=== PATIENT | female | born 1980 | race Caucasian/White ===

== ENCOUNTER → 2016-07-18 | Outpatient (CLI) | payer OTHER, BC ==
[~2016-07-18] MED LIST: ATIVAN 0.50.5 MG/TAB PO; LEVOXYL0.05 MG PO; NUVARING1 ICR VG; PRINZIDE 12.5 M1 TA1 PO; PRISTIQ 50 MG T50 MG PO; PRISTIQ50 M1 PO
== END ==
LOC: BHSO 10:20
DX: F31.81 Bipolar II disorder (principal)

== ENCOUNTER → 2016-08-15 | Outpatient (CLI) | payer OTHER | LOC: BHSO 09:58 | DX: F31.81 Bipolar II disorder (principal) ==

== ENCOUNTER → 2016-09-19 | Outpatient (CLI) | payer OTHER | LOC: BHSO 09:25 | DX: F31.81 Bipolar II disorder (principal) ==

== ENCOUNTER → 2016-10-17 | Outpatient (CLI) | payer OTHER | LOC: BHSO 09:01 | DX: F31.81 Bipolar II disorder (principal) ==

== ENCOUNTER → 2016-11-21 | Outpatient (CLI) | payer OTHER | LOC: BHSO 10:21 | DX: F33.41 Major depressive disorder, recurrent, in partial remission (principal) ==

== ENCOUNTER 2017-01-30 12:45 | Outpatient (RCR) | payer OTHER | END 2017-02-20 16:42 | LOC: WSPT 12:45 | DX: M25.562 Pain in left knee (principal) ==

== ENCOUNTER → 2017-01-30 | Outpatient (CLI) | payer OTHER | LOC: BHSO 08:58 | DX: F41.1 Generalized anxiety disorder (principal) ==

== ENCOUNTER → 2017-04-10 | Outpatient (CLI) | payer OTHER | LOC: BHSO 09:21 | DX: F40.10 Social phobia, unspecified (principal) ==

== ENCOUNTER → 2017-07-24 | Outpatient (CLI) | payer OTHER | LOC: BHSO 09:19 | DX: F41.1 Generalized anxiety disorder (principal) | CPT/HCPCS: G0463 ==

== ENCOUNTER → 2017-10-16 | Outpatient (CLI) | payer OTHER | LOC: BHSO 09:36 | DX: F33.42 Major depressive disorder, recurrent, in full remission (principal) | CPT/HCPCS: G0463 ==

== ENCOUNTER → 2018-01-29 | Outpatient (CLI) | payer OTHER | LOC: BHSO 09:17 | DX: F41.1 Generalized anxiety disorder (principal) | CPT/HCPCS: G0463 ==

== ENCOUNTER → 2018-04-06 | Outpatient (CLI) | payer OTHER | LOC: BHSO 08:43 | DX: F41.0 Panic disorder [episodic paroxysmal anxiety] (principal) | CPT/HCPCS: G0463 ==

== ENCOUNTER → 2018-06-04 | Outpatient (CLI) | payer OTHER | LOC: BHSO 08:41 | DX: F41.1 Generalized anxiety disorder (principal) | CPT/HCPCS: G0463 ==

== ENCOUNTER → 2018-08-13 | Outpatient (CLI) | payer OTHER | LOC: BHSO 12:23 | DX: F33.42 Major depressive disorder, recurrent, in full remission (principal) | CPT/HCPCS: G0463 ==

== ENCOUNTER → 2018-10-15 | Outpatient (CLI) | payer OTHER | LOC: BHSO 09:38 | DX: F41.1 Generalized anxiety disorder (principal) | CPT/HCPCS: G0463 ==

== ENCOUNTER → 2019-03-11 | Outpatient (CLI) | payer OTHER | LOC: BHSO 09:18 | DX: F41.1 Generalized anxiety disorder (principal) | CPT/HCPCS: G0463 ==

== ENCOUNTER → 2020-02-24 | Outpatient (CLI) | payer OTHER | LOC: BHSO 13:44 | DX: F41.0 Panic disorder [episodic paroxysmal anxiety] (principal) | CPT/HCPCS: G0463 ==

== ENCOUNTER → 2020-03-23 | Outpatient (CLI) | payer OTHER | LOC: BHSO 13:41 | DX: F41.1 Generalized anxiety disorder (principal) | CPT/HCPCS: G0463 ==

== ENCOUNTER 2021-11-20 23:37 | Observation (INO) | payer OTHER ==
[~2021-11-20] VITALS: Wt 81.8 kg
[2021-11-21] VITALS (9 sets, daily range): BP systolic 114–126; BP diastolic 68–83; PULSE 78–87; TEMP 98–98.4
[2021-11-21 00:14] LABS: BASO % 0.3 % (0.0-2.0); GRAN # 11.3 K/mm3 (1.4-6.5); GRAN % 86.7 % (42.2-75.2); HEMATOCRIT 39.5 % (37.0-47.0); HEMOGLOBIN 13.9 g/dl (12.5-16.0); LYMPH # 1.4 K/mm3 (1.2-3.4); LYMPH % 10.4 % (20.0-51.0); MEAN CELL VOLUME 83 fl (80.0-100.0); MEAN CORPUSCULAR HEMOGLOBIN 29 pg (27-31); MEAN CORPUSCULAR HGB CONC 35 g/dl (33.0-37.0); MEAN PLATELET VOLUME 11.1 fl (7.4-10.4); MONO # 0.3 K/mm3 (0.1-0.6); MONO % 2.2 % (1.7-9.3); PLATELET COUNT 244 K/mm3 (130-400); RED BLOOD COUNT 4.77 M/mm3 (4.10-5.30); REDCELL DISTRIBUTION WIDTH-CV 12.7 % (11.5-14.5)
[2021-11-21 00:21] LABS: BILIRUBIN,TOTAL 1.8 mg/dL (0.2-1.2); C-REACTIVE PROTEIN 0.1 mg/dL (0.00-0.50); CALCIUM 9.7 mg/dL (8.4-10.2); CREATININE, serum 0.8 mg/dL (0.57-1.11); POTASSIUM 3.5 mmol/L (3.5-4.5); TOTAL PROTEIN 8.4 gm/dL (6.2-8.1)
[2021-11-21 01:13] LABS: COLLECTION METHOD CLEAN CATCH
[2021-11-21 01:20] LABS: PH 7 (5-8); SQUAMOUS EPITHELIAL None Seen /hpf (0-10); URINE APPEARANCE Clear (CLEAR/HAZY); URINE BACTERIA None Seen /hpf (NONE SEEN); URINE BILIRUBIN Negative (NEGATIVE); URINE BLOOD Negative (NEGATIVE); URINE COLOR Straw (YELLOW); URINE GLUCOSE 2+ (NEGATIVE); URINE KETONE 2+ (NEGATIVE); URINE LEUKOCYTE ESTERASE Negative (NEGATIVE); URINE NITRATE Negative (NEGATIVE); URINE PROTEIN(semi-quant) Negative (NEGATIVE); URINE RBC 0-2 /hpf (0-2); URINE UROBILINOGEN Negative (NEGATIVE)
[2021-11-21] MEDS ORDERED: VIIBRYD20 MG PO (05:27)
[2021-11-21] MEDS ORDERED: NORVASC 5MG5 MG/TAB PO (05:27)
[2021-11-21] MEDS ORDERED: SYNTHROID0.125 MG/T PO (05:27)
--- NOTE | 2021-11-21 09:57 | NUR ---
Initial visit; Patient and her daughter thanked [employer] for offering God's blessings and to keep Danelle in her prayers. Danelle states she is feeling better and was receptive to [employer] keeping her in her prayers.
--- NOTE | 2021-11-21 10:45 | NUR ---
STELLA met with the patient and her girlfriend, Faye Mejia (ph#[phone]), to discuss discharge plan. The patient lives in [place] with her two children. They are 9 and 14-years old. She states that her children are staying with her parents while she is here. She reports independence with ADLs and does not have any DME. The patient does not have a DPOA-HC and she was not interested in completing one while here. The patient states that she is not and that her children are under the age of 18. Her parents are her next-of-kin: Nisha (ph#[phone]) and Eric. The patient plans on returning home with her children upon discharge. No additional needs at this time. *Discharge plan: home with children*
[2021-11-21] MEDS ORDERED: IBU800 M1 PO (12:36)
[2021-11-21] MEDS ORDERED: PERCOCET 325 MG1 TA2 PO (12:36)
--- NOTE | 2021-11-21 13:40 | NUR ---
PATIENT DISCHARGED TO HOME WITH SIGNIFICANT OTHER AT 1330
== END 2021-11-21 13:30 | disposition home or self-care (01) ==
LOC: COL.ER 23:37 → SURG 11-21 04:35
PROVIDERS: Emergency Medicine; ADMIT Student in an Organized Health Care Education/Training Program
DX: N83.8 Other noninflammatory disorders of ovary, fallopian tube and broad ligament (principal)
CPT/HCPCS: G0378; J0690; J1100; J1170; J1885; J2175; J2270; J2405; J2704; J2710; J3010; J7030; J7120; Q9967

== ENCOUNTER → 2024-02-12 | Outpatient (CLI) | payer OTHER ==
[~2024-02-12] MED LIST changes: +IBU800 M1 PO; +NORVASC 5MG5 MG/TAB PO; +PERCOCET 325 MG1 TA2 PO; +SYNTHROID0.125 MG/T PO; +VIIBRYD20 MG PO
== END ==
LOC: MC.RAD 07:25
DX: Z12.31 Encounter for screening mammogram for malignant neoplasm of breast (principal); N64.89 Other specified disorders of breast

== ENCOUNTER → 2024-02-18 | Outpatient (CLI) | payer OTHER | LOC: MC.RAD 10:55 | DX: R92.8 Other abnormal and inconclusive findings on diagnostic imaging of breast (principal) ==